=== PATIENT | female | born 1995 | race Caucasian/White ===

== ENCOUNTER → 2019-08-03 00:09 | Day surgery (SDC) | payer OTHER, SELFPAY ==
[2019-07-29 13:57] VITALS: BMI 44.2
[2019-08-03 07:30] VITALS: BP 119/54; PULSE 56; RESP 16; TEMP 37; O2SAT 100
[2019-08-03] MEDS: LACTATED RINGERS 1,000 ML 30 ML IV CONT (07:30)
[2019-08-03] MEDS: IBUPROFEN IV 800 MG/200 ML 800 MG/200 ML BAG 400 MG IVPB (07:35)
--- NOTE | 2019-08-03 07:45 | WPDANESEPPF ---
Anes - Initial Pre Proc Eval Procedure: Operation Date: 08/03/19 08:30 Proposed Procedures p Suction Dilatation and Curettage - Michelle Alicia MD Date/Time: 08/03/19 07:45 Surgeon: Michelle Alicia MD Pre Op Diagnosis: missed AB Patient Data Age: 23 Gender: F Height: 5 ft 3 in Weight: 113.4 kg Allergies Allergy/AdvReac Type Severity Reaction Status Date / Time No Known Allergies Allergy Verified 07/29/19 13:56 Home Medications Medication Instructions Recorded Confirmed Type No Home Medications 07/29/19 07/29/19 History Patient hx anesthesia problems: none Family hx anesthesia problems: none PMFSH Social History Social History Gender identity (if verbalized by the patient): Female Anes - Eval Final PreProcedure Day of Procedure 08/03/19 07:45 Patient weight: morbidly obese Heart: regular rate and rhythm Lungs: clear to auscultation Airway: Mallampati scale class II Neurological: alert and oriented Last oral intake: >/= 8 hours ASA classification: III Emergent: no Anesthetic plan: proceed Anesthesia type and monitoring: general GIVS and standard monitoring Informed Consent: The patient's anesthetic plan and its attendant risks and benefits were discussed with the patient/family/POA. Questions were solicited and answers provided to the satisfaction of the patient/family/POA.
--- NOTE | 2019-08-03 08:08 | PM.IMHP ---
H&P: HPI History of Present Illness Chief complaint: missed AB Narrative: Karen Wood is a 23 year old female with a missed . We have agreed to perform suction D&C. She understands that injuries can occur during surgery. She understands if these injuries can result in severe illness, more surgery, and hospitalization. She understands there is risk of hemorrhage and infection. I have described the procedure to the patient in detail. Review of Systems Constitutional: Constitutional: Reports no additional constitutional complaints, Denies fatigue, Denies headache(s), Denies lethargy and Denies weakness Eyes: Eyes: Reports no additional eye complaints, Denies blurry vision and Denies photophobia ENT: Reports as per HPI, Denies headache(s) and Denies neck pain Cardiovascular: Cardiovascular: Denies chest pain, Denies diaphoresis, Denies leg edema, Denies palpitations and Denies dyspnea Respiratory: Respiratory: Denies hemoptysis, Denies dyspnea and Denies wheezing Gastrointestinal: Gastrointestinal: Denies abdominal pain, Denies melena, Denies bloating, Denies hematochezia, Denies nausea and Denies vomiting Genitourinary: Genitourinary: Reports no additional female genitourinary complaints Musculoskeletal: Musculoskeletal: Denies joint swelling, Denies neck pain, Denies numbness and Denies stiffness Neurologic: Denies Abnormal speech present, Denies confusion, Denies headache(s), Denies numbness and Denies weakness Psychiatric: Psychiatric: Denies anxiety, Denies confusion, Denies depression, Denies homicidal ideation and Denies suicidal ideation Endocrine: Endocrine: Denies fatigue and Denies palpitations Allergic/Immunologic: Allergic/Immunologic: Denies wheezing [facility] Social History Social History Gender identity (if verbalized by the patient): Female Meds Home Medications and Allergies Home Medications Medication Instructions Recorded Confirmed Type No Home Medications 07/29/19 07/29/19 History Allergies Allergy/AdvReac Type Severity Reaction Status Date / Time No Known Allergies Allergy Verified 07/29/19 13:56 Vital Signs Vital Signs - 24 hr 08/03/19 07:30 Temperature 98.6 F Pulse Rate 56 L Respiratory Rate 16 Blood Pressure 119/54 L Pulse Oximetry 100 Exam Const: General: healthy appearing, comfortable and no acute distress; No confusion Orientation/consciousness: No confusion Eyes: Direct Ophthalmoscopy: No photophobia Resp: Auscultation: clear to auscultation bilaterally, no rales, no rhonchi and no wheezes Cardio: Rate: regular rate Heart sounds: no click, no murmurs and no rubs GI: Inspection: non-distended GI Palp: No abdominal tenderness Auscultation: normal bowel sounds Neuro: General: No confusion Speech: No Abnormal speech present Extrem: General: normal to inspection, no pedal edema and no calf tenderness Assessment and Plan Assessment and plan (1) Missed : Code(s): O02.1 - Missed Status: Acute Assessment and Plan: This patient is a 23-year-old female with a missed . We have agreed to perform suction D&C. She understands the risks, benefits, and alternatives. She has completed the informed consent process is ready to proceed.
[2019-08-03 08:42] VITALS: BP 121/63; PULSE 71; RESP 16; TEMP 36.4; O2SAT 95
--- NOTE | 2019-08-03 08:51 | P.OP_ITS ---
Procedure Note - Detailed Date of procedure: 08/03/19 Pre-op diagnosis: missed AB Post-op diagnosis: same Procedure performed: Suction D&C Description of procedure: The patient was taken the operating room. She has prepped and draped in dorsal lithotomy position after induction of mac anesthesia. A speculum was placed in the vagina. The cervix was grasped with a tenaculum. The cervix was injected at 3 and 9:00 a.m. with 1% lidocaine. The cervix was dilated up to 8 mm using Mallory dilators. An 8 curved plastic suction curette was then applied to the intrauterine cavity. All of the surfaces in the intrauterine cavity were curettage under VAC. A sharp medium-size curette was then used to curettage all the surfaces to confirmed the removal of all the products conception. When all surfaces for bleed to be clean the curette was r emoved. The suction curette was then reapplied to remove all the debris. The procedure was terminated. The tenaculum was removed. The speculum was removed. The patient tolerated the procedure well. She was taken recovery room in stable condition. Anesthesia: MAC Surgeon: Michelle Alicia MD Estimated blood loss (mL): 25 Drains: No Packing: No Pathology: yes Complications: No immediate complications Condition: stable Disposition: PACU Findings: Normal vulva vagina and cervix. The moderate amounts of products conception. 8 cm uterus.
[2019-08-03 08:55] VITALS: BP 121/68; PULSE 59; RESP 14; O2SAT 100
--- NOTE | 2019-08-03 09:00 | PM.OBPNVD ---
OB - PN: Subj Subjective Date/time seen: 08/03/19 09:00 Interval history: removal of balkri balloon OB - PN A/P Assessment and Plan (1) hemorrhage: Code(s): O72.1 - Other immediate hemorrhage Status: Acute Assessment and Plan: balkri removed without complication, balloon drained and withdrawn - no bleeding Time Spent With Patient Time: Total time spent is greater than 50% in coordination of care (as documented) at patient's floor/unit and/or counseling patient:
[2019-08-03 09:10] VITALS: BP 114/80; PULSE 61; RESP 16; O2SAT 98
[2019-08-03 09:13] VITALS: BP 129/72; PULSE 60; RESP 14
[2019-08-03 09:40] VITALS: BP 120/74; PULSE 58; RESP 14
== END | disposition home or self-care (01) ==
PROVIDERS: Visit Provider Obstetrics & Gynecology
PROC: (CPT 59820; principal; 2019-08-03 08:30)
DX: O02.1 Missed abortion (principal)
CPT/HCPCS: 59820; 36415; 86900; 86901; 88305; A9270; J1741; J2250; J2704; J3010; J7120

== ENCOUNTER 2020-08-20 19:56 | Observation (INO) | payer OTHER, SELFPAY ==
--- NOTE | ~2020-08-20 | US_ITS ---
EXAMINATION: US abdomen limited EXAM DATE: 08/21/2020 07:44 INDICATION: Right upper quadrant pain, elevated liver enzymes. TECHNIQUE: Multiple grayscale and Doppler images of the abdomen right upper quadrant were obtained (b y a technologist who performed the scan) and subsequently reviewed. There is no prior study for milady bahena. FINDINGS: The pancreatic head and body are normal in appearance. The pancreatic tail is not visualized. The l iver has normal echogenicity and contour. There are no focal liver lesions identified. There is no evidence of intrahepatic biliary duct dilation. Portal venous flow was seen in the hepatopedal, nor mal direction and has normal Doppler waveform. No right-sided hydronephrosis. Common bile duct measures 5 mm, which is normal. The gallbladder wall is normal in thickness, with ex pected amount of distention. No sonographic evidence of pericholecystic fluid. Multiple small galls tones which are likely poorly calcified. Technologist performing exam reports patient did not demons trate sonographic Bhakta's sign. Please note that this sign is less reliable in patients who have re ceived pain medication. IMPRESSION: Cholelithiasis. Reviewed, dictated and finalized at location A. IMPRESSION: Cholelithiasis.
[2020-08-20 19:15] VITALS: TEMP 36.4
[2020-08-20 19:31] VITALS: BP 123/62; PULSE 71
[2020-08-20 20:02] LABS: Add Urine Microscopic? YES; Appearance Urine Cloudy (Clear); Bilirubin Urine Negative (Negative); Blood Urine Negative (Negative); Color Urine Yellow (Yellow); Glucose Urine UA Negative (Negative); Ketones Urine Negative (Negative); Leukocyte Esterase Ur 1+ LEU/UL (NEGATIVE); Nitrate Urine Negative (Negative); Protein Urine Negative (Negative); Urobilinogen Urine Negative mg/dL (<2.0)
[2020-08-20 20:10] LABS: RBC Urine 0-2 /hpf (0-2)
[2020-08-20 20:11] LABS: Bacteria Urine 1+ /hpf; Squamous Epithelial Cell Urine Few /hpf (Few)
--- NOTE | 2020-08-20 20:39 | OBADM ---
This patient, Karen Wood, admitted to the OB room OB Post 117 for observation. Patient/family oriented to hospital policies and general routines including ID bracelet, bed and alarms, visiting hours, pain management, procedures, bathroom and other care routines, personal items, smoking policy, room service/diet, and visiting hours. Patient/Family are encouraged to report perceived risks to care and to ask questions if they do not understand what they are told or what they should do.
[2020-08-20 21:36] LABS: Basophils Percent Auto 0.2 % (0.2-1.2); Eosinophils Absolute Auto 0.1 K/mm3 (0-0.3); Eosinophils Percent Auto 0.7 % (0-4.4); Hematocrit 33.1 % (37.0-47.0); Hemoglobin 11.1 g/dL (12.0-15.0); Immature Granulocyte Absolute 0.06 K/mm3 (0.00-0.031); Immature Granulocyte Percent A 0.5 % (0-0.5); Lymphocytes Absolute Auto 0.99 K/mm3 (0.9-3.2); Mean Corpuscular HGB Conc 33.5 g/dl (32-36); Mean Corpuscular Hemoglobin 30.4 pg (26-34); Mean Corpuscular Volume 90.7 fl (80-100); Mean Platelet Volume 10.9 fl (7.4-10.4); Monocytes Absolute Auto 0.6 K/mm3 (0.1-0.6); Monocytes Percent Auto 4.5 % (2.6-8.5); Neutrophils Absolute Auto 10.6 K/mm3 (1.3-6.7); Neutrophils Percent Auto 86.1 % (45.5-73.1); Platelet Count Result 202 k/mm3 (150-375); Red Blood Count 3.65 M/mm3 (4.2-5.4); Red Cell Distribution Width 12.4 % (11.5-14.5); White Blood Count 12.3 K/mm3 (4.5-10.0)
[2020-08-20 21:46] LABS: Alanine Aminotransferase 49 U/L (4-35); Albumin Level 3.7 g/dL (3.5-5.1); Alkaline Phosphatase 131 U/L (38-126); Anion Gap 4 mmol/L (8-16); Aspartate Amino Transferase 74 U/L (14-36); Bilirubin,Total 1.7 mg/dL (0.2-1.3); Blood Urea Nitrogen 6 mg/dL (7-17); Calcium 9.2 mg/dL (8.4-10.2); Carbon Dioxide 27 mmol/L (22-30); Chloride 105 mmol/L (98-107); Estimated Glomerular Filt Rate > 60; Glucose 104 mg/dL (65-105); Potassium 3.7 mmol/L (3.4-5.0); Sodium 136 mmol/L (137-145); Uric Acid 4.5 mg/dL (2.5-7.5)
[2020-08-20 22:10] LABS: Amylase > 2400 U/L (30-110)
--- NOTE | 2020-08-20 22:15 | PC.NURSE ---
Lab results called to Jaylan Gurrola CNM. Orders received. Will admit pt and and get surgical consult and ultrasound in morning. Pt advised.
[2020-08-20] MEDS: LACTATED RINGERS 1,000 ML 125 ML IV CONT (23:09)
[2020-08-20 23:53] VITALS: BMI 48.8
[2020-08-20] MEDS: fentaNYL CITRATE INJ (*CRX) 100 MCG/2 ML VIAL 50 MCG IV PUSH (23:56)
[2020-08-21] VITALS (7 sets, daily range): BP systolic 104–121; BP diastolic 52–64; PULSE 55–76; RESP 20; TEMP 36.6–36.9
--- NOTE | 2020-08-21 06:34 | PC.NURSE ---
Hospitalist office notified of consult.
[2020-08-21] MEDS: LACTATED RINGERS 1,000 ML 125 ML IV CONT ×3 (07:01→23:49)
--- NOTE | 2020-08-21 08:00 | PC.NURSE ---
Dr. Arreguin in to see pt, no further orders at this time. Dr. Vasquez also called at this time. States an FLARE MAKER from his office will be in to see pt today, reviewed labs with Dr. Vasquez.
--- NOTE | 2020-08-21 08:05 | WPDOBADMIT ---
Obstetrics - Admit Note Admission Note: 714 24 y/o presented last night with c/o RUQ and right flank pain. Pain started Thursday evening after dinner. VSS. Initial labs did show elevated LFT. Amylase/Lipase pending. Plan was to keep overnight for a ultrasound & surgery consult in the AM. NPO after midnight. 0630 I was notified of significantly elevated amylase/lipase. H&P to follow when patient returns from ultrasound. record reviewed. No pertinent additions to the history and/or any subsequent changes in the physical findings that are not consistent with the expected course of the were found. Additions to the history and/or subsequent changes in the physical findings follow. None.
--- NOTE | 2020-08-21 08:14 | PM.IMCN ---
Assessment and Plan Assessment and plan (1) Pancreatitis: Qualifiers: Acute pancreatitis complication: unspecified Chronicity: acute Pancreatitis type: biliary Qualified Code(s): K85.10 - Biliary acute pancreatitis without necrosis or infection Code(s): K85.90 - Acute pancreatitis without necrosis or infection, unspecified Status: Acute Assessment and Plan: [place] [address] and Amylase >76021. LFTs elevated as well to suggest related to gallstone pancreatitis. Denies alcohol use. Will need to check Lipid levels but felt hyperTG less likely the cause. Symptoms are mild so hopefully she has passed the stone through. Will follow labs and clinical exam. Currently NPO. Recommend clear liquid diet if okay with General surgery. Repeat labs today. If symptoms and biochemical markers improve, will advance diet. If symptoms persist however patient may need an ERCP and I would recommend this being done at a facility with adult high school instructor. Follow-up on abdominal ultrasound. Abd US showing cholelithiasis. CBD normal at 5mm. No evidence of acute cholecystitis. WBC normal now. Lipase better at 3839. TB normal now but AST/ALT about the same. Possibly passed stone. (2) Elevated LFTs: Code(s): R79.89 - Other specified abnormal findings of blood chemistry Status: Acute Assessment and Plan: Most likely related to above. Follow-up on abdominal ultrasound. Repeat LFTs today. (3) Intrauterine : Code(s): Z34.90 - Encounter for supervision of normal , unspecified, unspecified trimester Status: Acute Assessment and Plan: Patient is 29 weeks gestational age. Per primary team. (4) Abnormal urinalysis: Code(s): R82.90 - Unspecified abnormal findings in urine Status: Acute Assessment and Plan: UA noted. UCx ordered. Not on abx. Following. (5) DVT prophylaxis: Code(s): Z29.9 - Encounter for prophylactic measures, unspecified Status: Acute Assessment and Plan: SCDs HPI Data of Consult Consult date: 08/22/20 Requesting Physician: Michelle Alicia MD Primary Care Provider: PROTECTIVE SIGNAL SUPERINTENDENT PHYSICIAN Consult Narrative Narrative: Karen Wood is a 24 year old healthy, female who is currently 29wks GA who presents with complaints of RUQ abdominal pain that radiates to the flank/back. In the evening of 08/19/20, she developed abdominal pain. She has not been having intermittent pain prior to this. Pain occurred after eating a pasta meal. She states the abdominal pain is squeezing pain that waxes/wanes in severity but remains consistent. Belching seem to improve the symptoms. She to Tylenol without benefit. She states it is worse with deep breathing. No pleuritc chest pain. No fever or chills. No hx of GB or pancreatic problems. Sister has had a CCY. No diarrhea but having constipation symptoms due to her . SHe did have a BM yesterday but no benefit to the pain. On 08/20, she developed nausea with one episode of bilious emesis that was brown in color. She then was 'spitting up blood' but she states this is typical for her. SHe has had episodes on n/v during her prior pregnacnies. No vaginal bleeding but does have discharge. No dysuria, hematuria or low back pain. Her urine is dark in color. No hx of seizures or migraines but did have an episode at 12wk GA with numbness in her hands and face. She was seen by Maternal Medicine who recommended MRI but felt this should wait until she was further along. No set plan for MRI brain at this time. Symptoms resolved quickly and have not returned. Weight has been appropriate. No hx of gestational DM and was recently tested during this and was negative. Here, patient was hemodynamically stable. Liver enzymes were. Lipase was 39,000. UA suspicious for UTI. Urine culture pending. She was started on fluids. Ultrasound
--- NOTE | 2020-08-21 08:20 | PM.IMHP ---
H&P: HPI History of Present Illness Date/Time: 08/21/20 08:20 RUQ & Right flank pain that started after dinner on Thursday. Chief Complaint: RUQ and Right flank pain Review of Systems Review of Systems: All systems reviewed & are unremarkable except as noted in HPI and below Constitutional: Constitutional: Reports no additional constitutional complaints Gastrointestinal: Gastrointestinal: Reports no additional gastrointestinal complaints Genitourinary: Genitourinary: Reports no additional female genitourinary complaints Musculoskeletal: Musculoskeletal: Reports no additional musculoskeletal complaints Integumentary/Breasts: Skin/Breast: Reports system reviewed and no additional complaints, except as docu [facility] Social History Social History Gender identity (if verbalized by the patient): Female Meds Home Medications and Allergies Home Medications Medication Instructions Recorded Confirmed Type No Home Medications 07/29/19 07/29/19 History Allergies Allergy/AdvReac Type Severity Reaction Status Date / Time No Known Allergies Allergy Verified 07/29/19 13:56 Vital Signs Vital Signs - 24 hr 08/20/20 19:15 08/20/20 19:31 08/21/20 00:01 Temperature 97.5 F L 97.9 F Pulse Rate 71 69 Blood Pressure 123/62 115/61 08/21/20 05:39 08/21/20 05:40 Temperature 98.5 F Pulse Rate 68 Blood Pressure 105/52 L Exam Const: General: comfortable and no acute distress Resp: Effort & Inspection: normal respiratory effort Cardio: Rate: regular rate Rhythm: regular rhythm GI: GI Palp: Yes Soft to palpation (Gravid) Skin: General skin exam: normal color Neuro: General: gait normal Speech: normal speech Extrem: General: normal to inspection Psych: Mental Status: mental status grossly normal H&P: Results Labs Labs: Short CBC 08/20/20 Range/Units 21:26 WBC 12.3 H (4.5-10.0) K/mm3 Hgb 11.1 L (12.0-15.0) g/dL Hct 33.1 L (37.0-47.0) % Plt Count 202 (150-375) k/mm3 [facility] 08/20/20 21:26 Sodium 136 L Potassium 3.7 Chloride 105 Carbon Dioxide 27 BUN 6 L Creatinine 0.60 L Glucose 104 Calcium 9.2 Liver Function 08/20/20 Range/Units 21:26 Total Bilirubin 1.7 H (0.2-1.3) mg/dL AST 74 H (14-36) U/L ALT 49 H (4-35) U/L Alkaline Phosphatase 131 H (38-126) U/L Albumin 3.7 (3.5-5.1) g/dL Urine 08/20/20 Range/Units 19:43 Urine Color Yellow (Yellow) Urine Appearance Cloudy H (Clear) Urine pH 6.0 (5.0-9.0) Ur Specific [place] 1.010 (1.001-1.035) Urine Protein Negative (Negative) mg/dL Urine Glucose (UA) Negative (Negative) mg/dL Assessment and Plan Additional Plan Continue npo status. Await medical and surgical consults.
[2020-08-21 10:27] LABS: Basophils Percent Auto 0.3 % (0.2-1.2); Eosinophils Absolute Auto 0.1 K/mm3 (0-0.3); Eosinophils Percent Auto 1.3 % (0-4.4); Hematocrit 30.2 % (37.0-47.0); Hemoglobin 10.1 g/dL (12.0-15.0); Immature Granulocyte Absolute 0.04 K/mm3 (0.00-0.031); Immature Granulocyte Percent A 0.5 % (0-0.5); Lymphocytes Absolute Auto 1.12 K/mm3 (0.9-3.2); Lymphocytes Percent Auto 14.3 % (18.3-44.2); Mean Corpuscular HGB Conc 33.4 g/dl (32-36); Mean Corpuscular Hemoglobin 30.5 pg (26-34); Mean Corpuscular Volume 91.2 fl (80-100); Mean Platelet Volume 10.7 fl (7.4-10.4); Monocytes Absolute Auto 0.5 K/mm3 (0.1-0.6); Monocytes Percent Auto 6.3 % (2.6-8.5); Neutrophils Absolute Auto 6.1 K/mm3 (1.3-6.7); Neutrophils Percent Auto 77.3 % (45.5-73.1); Platelet Count Result 184 k/mm3 (150-375); Red Blood Count 3.31 M/mm3 (4.2-5.4); Red Cell Distribution Width 12.5 % (11.5-14.5); White Blood Count 7.8 K/mm3 (4.5-10.0)
[2020-08-21 10:39] LABS: Alanine Aminotransferase 64 U/L (4-35); Albumin Level 3.4 g/dL (3.5-5.1); Alkaline Phosphatase 131 U/L (38-126); Anion Gap 2 mmol/L (8-16); Aspartate Amino Transferase 92 U/L (14-36); Bilirubin,Total 0.9 mg/dL (0.2-1.3); Blood Urea Nitrogen 6 mg/dL (7-17); Calcium 8.6 mg/dL (8.4-10.2); Carbon Dioxide 28 mmol/L (22-30); Chloride 107 mmol/L (98-107); Cholesterol 168 mg/dL (0-200); Estimated CRCL calculation 190 ml/min; Estimated Glomerular Filt Rate > 60; Glucose 86 mg/dL (65-105); HDL Direct 59 mg/dL; Potassium 3.6 mmol/L (3.4-5.0); Sodium 137 mmol/L (137-145); Triglycerides 109 mg/dL (<150)
[2020-08-21 10:50] LABS: LDL Cholesterol Direct 70 mg/dL
[2020-08-21 10:52] LABS: Lipase 3839 U/L (23-300)
--- NOTE | 2020-08-21 12:13 | PM.CNGS ---
Assessment and Plan Assessment and plan (1) Pancreatitis: Qualifiers: Chronicity: acute Pancreatitis type: biliary Acute pancreatitis complication: unspecified Qualified Code(s): K85.10 - Biliary acute pancreatitis without necrosis or infection Code(s): K85.90 - Acute pancreatitis without necrosis or infection, unspecified Status: Acute Assessment and Plan: Acute pancreatitis, most likely biliary pancreatitis. No alcohol use. Triglycerides normal today. Ultrasound showed evidence of cholelithiasis, but no other abnormalities of the gallbladder suggesting acute cholecystitis. Would continue with IV fluids and analgesics to treat the pancreatitis. We will allow her to have clear liquids today. Lipase is trending down and she is clinically improving. Her elevated LFTs are likely due to a gallstone/s that slipped out of the gallbladder and into the common bile duct. LFTs are trending down this morning. Would continue to trend LFTs to see if it looks like the stone may have passed spontaneously. If her LFTs start to rise, then we may need to consider further evaluation of the common bile duct for choledocholithiasis and get GI involved. I discussed with the patient that she will eventually need a cholecystectomy to avoid further complications of her cholelithiasis, but she would be a high risk surgical candidate at this time due to being in the 3rd trimester of . The goal would be to have the pancreatitis resolved and eventually send her home on a low fat diet to follow until she is able to have the cholecystectomy. We would have her follow-up with Dr. Vasquez after delivery to schedule her outpatient laparoscopic cholecystectomy. Will continue to monitor the patient with serial abdominal exams and labs. Thank you for allowing us to see the patient in consultation and we will continue to follow along with you. (2) Cholelithiasis: Qualifiers: Cholelithiasis location: gallbladder and bile duct Cholecystitis presence: without cholecystitis Code(s): K80.20 - Calculus of gallbladder without cholecystitis without obstruction Status: Acute Assessment and Plan: Will eventually need a cholecystectomy, but will try to avoid this until at least 4 weeks post- if possible. Discussed this with the patient and the possibility of recurrent pancreatitis or other complications with the cholelithiasis prior to cholecystectomy. She verbalized understanding. She will need to follow a low fat diet and I will give her an educational sheet from our office regarding the surgery and diet instructions. (3) Elevated LFTs: Code(s): R79.89 - Other specified abnormal findings of blood chemistry Status: Acute Assessment and Plan: Continue to trend labs, repeat tomorrow. See plan above. We will discuss the risk of having an MRCP for this patient with the radiologist. (4) Obesity, morbid, BMI 40.0-49.9: Code(s): E66.01 - Morbid (severe) obesity due to excess calories Status: Acute Assessment and Plan: Encouraged low-fat diet after discharge and attempted weight loss prior to surgery. Additional Plan I have discussed the patient's case and plan of care with Dr. Vasquez. History of Present Illness Consult details Consult date: 08/21/20 Reason for consult: other (Biliary pancreatitis, cholelithiasis) Requesting physician: Pualina Gurrola CNM Narrative: This is a 24-year-old obese female, who is 29 weeks gestation, who developed right flank pain radiating to her right upper abdomen on Thursday night. She reports eating pasta for dinner prior to the onset of her symptoms. She developed associated nausea, but no vomiting. She was evaluated at [facility] and labs revealed a lipase of 39,421, amylase greater than 2400[place] [address], total bilirubin 1.7, AST 74, ALT 49, and alk-phos 131. Abdominal ultrasound shows cholelithiasis with a common bile duct
[2020-08-22 04:53] VITALS: BP 118/62; PULSE 25; PULSE 37; PULSE 51; PULSE 61; O2SAT 93; O2SAT 94; O2SAT 96
[2020-08-22 04:54] VITALS: BP 118/62; PULSE 62; RESP 16; TEMP 36.6; O2SAT 99
[2020-08-22 05:09] LABS: Hemoglobin 9.9 g/dL (12.0-15.0); Mean Corpuscular Hemoglobin 30.1 pg (26-34); Mean Corpuscular Volume 91.2 fl (80-100); Mean Platelet Volume 10.6 fl (7.4-10.4); Platelet Count Result 160 k/mm3 (150-375); Red Blood Count 3.29 M/mm3 (4.2-5.4); Red Cell Distribution Width 12.5 % (11.5-14.5); White Blood Count 7.8 K/mm3 (4.5-10.0)
[2020-08-22 05:35] LABS: Alanine Aminotransferase 68 U/L (4-35); Albumin Level 3.2 g/dL (3.5-5.1); Alkaline Phosphatase 127 U/L (38-126); Anion Gap 6 mmol/L (8-16); Aspartate Amino Transferase 75 U/L (14-36); Bilirubin,Total 0.5 mg/dL (0.2-1.3); Blood Urea Nitrogen 3 mg/dL (7-17); Carbon Dioxide 23 mmol/L (22-30); Chloride 107 mmol/L (98-107); Estimated CRCL calculation 190 ml/min; Estimated Glomerular Filt Rate > 60; Glucose 81 mg/dL (65-105); Lipase 323 U/L (23-300); Potassium 3.4 mmol/L (3.4-5.0); Sodium 136 mmol/L (137-145)
--- NOTE | 2020-08-22 07:20 | PM.OBPNVD ---
OB - PN: Subj Subjective Date/time seen: 08/22/20 07:20 Patient comments: no complaints and pain well controlled Narrative: Pain has resolved. LFTs stable and mildly improved, amylase markedly improved, WBC improved. Good FM. No contractions. OB - PN: Obj Data Labs CBC & Chem 7: 08/22/20 05:00 08/22/20 05:00 Labs: Laboratory Results - last 24 hr 08/21/20 08/21/20 08/22/20 10:21 10:21 05:00 WBC 7.8 RBC 3.31 L Hgb 10.1 L Hct 30.2 L MCV 91.2 MCH 30.5 MCHC 33.4 RDW 12.5 Plt Count 184 MPV 10.7 H Immature Gran % (Auto) 0.5 Neut % (Auto) 77.3 H Lymph % (Auto) 14.3 L Mccormick % (Auto) 6.3 Eos % (Auto) 1.3 Baso % (Auto) 0.3 Lymph # (Auto) 1.12 Mccormick # (Auto) 0.5 Eos # (Auto) 0.1 Baso # (Auto) 0.0 Abs Immat Gran (auto) 0.04 H Absolute Neuts (auto) 6.1 Absolute Nucleated RBC 0.0 Nucleated RBC % 0.0 Sodium 137 136 L Potassium 3.6 3.4 Chloride 107 107 Carbon Dioxide 28 23 Anion Gap 2 L 6 L BUN 6 L 3 L Creatinine 0.50 L 0.50 L Estim Creat Clear Calc 190 190 Estimated GFR > 60 > 60 Glucose 86 81 Calcium 8.6 9.0 Total Bilirubin 0.9 0.5 AST 92 H 75 H ALT 64 H 68 H Alkaline Phosphatase 131 H 127 H Total Protein 7.0 7.0 Albumin 3.4 L 3.2 L Triglycerides 109 Cholesterol 168 LDL Cholesterol Direct 70 HDL Direct 59 Lipase 3839 H 323 H 08/22/20 05:00 WBC 7.8 RBC 3.29 L Hgb 9.9 L Hct 30.0 L MCV 91.2 MCH 30.1 MCHC 33.0 RDW 12.5 Plt Count 160 MPV 10.6 H Immature Gran % (Auto) Neut % (Auto) Lymph % (Auto) Mccormick % (Auto) Eos % (Auto) Baso % (Auto) Lymph # (Auto) Mccormick # (Auto) Eos # (Auto) Baso # (Auto) Abs Immat Gran (auto) Absolute Neuts (auto) Absolute Nucleated RBC Nucleated RBC % Sodium Potassium Chloride Carbon Dioxide Anion Gap BUN Creatinine Estim Creat Clear Calc Estimated GFR Glucose Calcium Total Bilirubin AST ALT Alkaline Phosphatase Total Protein Albumin Triglycerides Cholesterol LDL Cholesterol Direct HDL Direct Lipase Imaging Radiologist's impression: Impressions Abdomen Ultrasound 08/21/20 07:55 IMPRESSION: Cholelithiasis. OB - PN A/P Plan Comments: 29 weeks with cholelithiasis resulting in pancreatitis. Appears stone must have passed as pain resolved and labs improving. Full liquids per surgery, may then have gen diet if tolerates. Home today if tolerates diet. Qi in future, hopefully after delivery. Discussed POC with pt and RN. Reassuring status throughout. Time Spent With Patient Time: Total time spent is greater than 50% in coordination of care (as documented) at patient's floor/unit and/or counseling patient: Time with patient: 15 - 25 minutes Exam Narrative: Exam Narrative: NAD, comfortable abdo: soft, nontender, gravid
[2020-08-22 07:22] VITALS: BP 136/68; PULSE 62
--- NOTE | 2020-08-22 07:26 | PM.OBDSVD ---
DS: Admitting Diagnosis Admitting Diagnosis Admitting Diagnosis: RUQ pain DS: Discharge Diagnosis Discharge Diagnosis (1) Cholelithiasis: Qualifiers: Cholelithiasis location: gallbladder and bile duct Cholecystitis presence: without cholecystitis Code(s): K80.20 - Calculus of gallbladder without cholecystitis without obstruction Status: Acute (2) Pancreatitis: Qualifiers: Chronicity: acute Pancreatitis type: biliary Acute pancreatitis complication: unspecified Qualified Code(s): K85.10 - Biliary acute pancreatitis without necrosis or infection Code(s): K85.90 - Acute pancreatitis without necrosis or infection, unspecified Status: Acute (3) Elevated LFTs: Code(s): R79.89 - Other specified abnormal findings of blood chemistry Status: Acute (4) Intrauterine : Code(s): Z34.90 - Encounter for supervision of normal , unspecified, unspecified trimester Status: Acute OB - DS: Summary Hospital Course Hospital Course: Pt was admitted for RUQ pain. Found to have very elevated amylase/lipase and moderately elevated LFTs. US showed cholelithiasis. Surgery and medicine consulted. Stone passed spontaneously and pain resolved as enzymes improved. OB Procedures : None OB Procedures Intrapartum: Other OB Procedures: : None Time Spent with Patient Time attestation: Total time spent providing and/or coordinating discharge services: Exam Const: General: healthy appearing and comfortable Nutritional Appearance: obese Resp: Effort & Inspection: normal respiratory effort GI: Inspection: normal to inspection and obesity Other: abdomen nontender, gravid, soft Skin: General skin exam: normal color DS: Data Data Completed and Pending Labs on day of discharge: Labs from last 24 hours 08/22/20 08/22/20 08/21/20 05:00 05:00 10:21 WBC 7.8 RBC 3.29 L Hgb 9.9 L Hct 30.0 L MCV 91.2 MCH 30.1 MCHC 33.0 RDW 12.5 Plt Count 160 MPV 10.6 H Immature Gran % (Auto) Neut % (Auto) Lymph % (Auto) [place] % (Auto) Eos % (Auto) Baso % (Auto) Lymph # (Auto) [place] # (Auto) Eos # (Auto) Baso # (Auto) Abs Immat Gran (auto) Absolute Neuts (auto) Absolute Nucleated RBC Nucleated RBC % Sodium 136 L 137 Potassium 3.4 3.6 Chloride 107 107 Carbon Dioxide 23 28 Anion Gap 6 L 2 L BUN 3 L 6 L Creatinine 0.50 L 0.50 L Estim Creat Clear Calc 190 190 Estimated GFR > 60 > 60 Glucose 81 86 Calcium 9.0 8.6 Total Bilirubin 0.5 0.9 AST 75 H 92 H ALT 68 H 64 H Alkaline Phosphatase 127 H 131 H Total Protein 7.0 7.0 Albumin 3.2 L 3.4 L Triglycerides 109 Cholesterol 168 LDL Cholesterol Direct 70 HDL Direct 59 Lipase 323 H 3839 H 08/21/20 10:21 WBC 7.8 RBC 3.31 L Hgb 10.1 L Hct 30.2 L MCV 91.2 MCH 30.5 MCHC 33.4 RDW 12.5 Plt Count 184 MPV 10.7 H Immature Gran % (Auto) 0.5 Neut % (Auto) 77.3 H Lymph % (Auto) 14.3 L [place] % (Auto) 6.3 Eos % (Auto) 1.3 Baso % (Auto) 0.3 Lymph # (Auto) 1.12 [place] # (Auto) 0.5 Eos # (Auto) 0.1 Baso # (Auto) 0.0 Abs Immat Gran (auto) 0.04 H Absolute Neuts (auto) 6.1 Absolute Nucleated RBC 0.0 Nucleated RBC % 0.0 Sodium Potassium Chloride Carbon Dioxide Anion Gap BUN Creatinine Estim Creat Clear Calc Estimated GFR Glucose Calcium Total Bilirubin AST ALT Alkaline Phosphatase Total Protein Albumin Triglycerides Cholesterol LDL Cholesterol Direct HDL Direct Lipase Discharge Plan Discharge Attending physician on discharge: Amanda Sharp Consulting providers: Lemuel Arreguin ; Jeferson Vasquez Discharging Clinician: Amanda Sharp Anticipated Discharge Date/Time: 08/22/20 14:00 Patient Disposition: Home, Self-Care Activity: as tolerated Diet: low fat Discharge Instructions:
[2020-08-22 07:31] VITALS: BP 101/55; PULSE 57
[2020-08-22 08:03] VITALS: BP 101/55; PULSE 73
--- NOTE | 2020-08-22 08:45 | PM.IMPN ---
Progress Note: A&P Assessment and Plan (1) Pancreatitis: Qualifiers: Chronicity: acute Pancreatitis type: biliary Acute pancreatitis complication: unspecified Qualified Code(s): K85.10 - Biliary acute pancreatitis without necrosis or infection Code(s): K85.90 - Acute pancreatitis without necrosis or infection, unspecified Status: Acute Assessment and Plan: [place] [address] and Amylase >01015. LFTs elevated as well to suggest related to gallstone pancreatitis. Denies alcohol use. Lipid levels normal. Lipase down to 323 this morning to suggest that she has passed the stone through. Labs and clinical exam also consistent with this. Currently NPO but agree with full liguid diet and would advance to lowfat diet as she tolerates. Okay for discharge from a medical standpoint if she tolerates her diet well. Will continue to follow. (2) Elevated LFTs: Code(s): R79.89 - Other specified abnormal findings of blood chemistry Status: Acute Assessment and Plan: Related to above. AST trending down now. ALT lags behind. (3) Intrauterine : Code(s): Z34.90 - Encounter for supervision of normal , unspecified, unspecified trimester Status: Acute Assessment and Plan: Patient is 29 weeks gestational age. Per primary team. (4) Abnormal urinalysis: Code(s): R82.90 - Unspecified abnormal findings in urine Status: Acute Assessment and Plan: UA noted. UCx negative (5) DVT prophylaxis: Code(s): Z29.9 - Encounter for prophylactic measures, unspecified Status: Acute Assessment and Plan: SCDs Subjective Date/time seen: 08/22/20 08:45 Interval history: 24 year old healthy, female who is currently 29wks GA who presents with complaints of RUQ abdominal pain that radiates to the flank/back found to have pancreatitis. She feels much better. No further abd pain. No n/v. maloney tones normal with routine monitoring. Exam Narrative: Exam Narrative: AF 98.5 104/58 55 14 98% ra Gen - NARD Chest - lungs are clear to auscultation bilaterally. CV - heart was regular rate and rhythm. S1-S2. Abd - abdomen was soft. NT/ND, +BS Ext - no edema Psych - normal mood and affect. Patient is pleasant and cooperative. Skin - warm and dry. No rashes noted. Objective Data Vital Signs Vital Signs: Vital Signs - 24 hr 08/21/20 16:07 08/21/20 22:13 08/21/20 22:15 Temperature 98.3 F 97.9 F Pulse Rate 76 68 Respiratory Rate 20 Blood Pressure 107/64 121/54 L Pulse Oximetry 08/22/20 04:53 08/22/20 04:54 08/22/20 07:22 Temperature 97.9 F Pulse Rate 61 62 62 Respiratory Rate 16 Blood Pressure 118/62 118/62 136/68 Pulse Oximetry 94 99 08/22/20 07:31 Temperature Pulse Rate 57 L Respiratory Rate Blood Pressure 101/55 L Pulse Oximetry Intake/Output Intake/Output: Intake & Output 08/19/20 08/20/20 08/21/20 08/22/20 23:59 23:59 23:59 23:59 Intake Total 3800 Output Total 600 Balance 3200 Meds/Results Medications: Active Medications Generic Name Dose Route Start Last Admin Trade Name Freq PRN Reason Stop Dose Admin Fentanyl Citrate 50 mcg 08/20/20 23:09 08/20/20 23:56 Fentanyl Citrate Inj (*Crx) 100 Mcg/2 Ml Vial IV PUSH 50 mcg Q4H PRN Administration Pain Rated 4-6 Lactated Ringer's 1,000 mls @ 125 mls/hr 08/20/20 23:10 08/21/20 23:49 Lr - Lactated Ringers Iv IV CONT 125 mls/hr .Q8H ROSS Administration Ondansetron HCl 4 mg 08/20/20 23:10 Ondansetron Inj 4 Mg/2 Ml Vial IV PUSH Q6H PRN Nausea And Vomiting Radiology Results: ITS Impressions Abdomen Ultrasound 08/21/20 07:55 IMPRESSION: Cholelithiasis. Labs Labs: Laboratory Results - last 24 hr 08/21/20 08/21/20 08/22/20 10:21 10:21 05:00 WBC 7.8 RBC 3.31 L Hgb 10.1 L Hct 30.2 L MCV 91.2
--- NOTE | 2020-08-22 08:50 | PC.NURSE ---
0715--Dr. Vasquez inquired per phone-report given, orders taken. Will start breakfast with full liquid and advance as tolerated. Pt will walk in halls.
--- NOTE | 2020-08-22 08:51 | PC.NURSE ---
0803--Dr. Arreguin at bedside. Discussed plan of care with patient and performed physical assessment. Pt encouraged to walk in unit and start diet with low fat diet.
--- NOTE | 2020-08-22 09:15 | PC.NURSE ---
0725--Dr. Sharp at bedside. Plan of care discussed.
--- NOTE | 2020-08-22 09:42 | PC.NURSE ---
0935--Pt sitting up in chair and reports she finished breakfast and remains pain-free.
--- NOTE | 2020-08-22 11:09 | PC.NURSE ---
1105---Pt ambulating in [place].
--- NOTE | 2020-08-22 12:46 | PC.NURSE ---
1235--PA at pt bedside. DC orders given and plan of care discussed with patient.
--- NOTE | 2020-08-22 13:14 | PC.NURSE ---
1312--Reported pt progress to Dr. Arreguin. DC orders given.
--- NOTE | 2020-08-22 13:28 | PM.PNGS ---
Progress Note: A&P Assessment and Plan (1) Pancreatitis: Qualifiers: Chronicity: acute Pancreatitis type: biliary Acute pancreatitis complication: unspecified Qualified Code(s): K85.10 - Biliary acute pancreatitis without necrosis or infection Code(s): K85.90 - Acute pancreatitis without necrosis or infection, unspecified Status: Acute Assessment and Plan: Lipase down to 300 today. Patient clinically improved. Tolerating a low fat diet. Okay from a surgical standpoint to discharge the patient when okay with other services. (2) Cholelithiasis: Qualifiers: Cholelithiasis location: gallbladder and bile duct Cholecystitis presence: without cholecystitis Code(s): K80.20 - Calculus of gallbladder without cholecystitis without obstruction Status: Acute Assessment and Plan: Will eventually need a cholecystectomy, but will try to avoid this until at least 4 weeks post- if possible. Discussed this with the patient and the possibility of recurrent pancreatitis or other complications with the cholelithiasis prior to cholecystectomy. She will need to follow a low fat diet and I will give her an educational sheet from our office regarding the surgery and diet instructions. Follow-up in our office after delivery to schedule outpatient cholecystectomy. If symptoms return prior to delivery, go to the facility where your high risk specialist is located in case there is a need for any intervention. Also, they have made a disk for the patient of what she had done at this facility to take to her high risk specialist at her next appointment for them to be aware. (3) Elevated LFTs: Code(s): R79.89 - Other specified abnormal findings of blood chemistry Status: Acute Assessment and Plan: Trending towards normal. See plan above. (4) Obesity, morbid, BMI 40.0-49.9: Code(s): E66.01 - Morbid (severe) obesity due to excess calories Status: Acute Assessment and Plan: Encouraged low-fat diet after discharge and attempted weight loss prior to surgery. Additional Plan I have discussed the plan of care with Dr. Vasquez. Subjective Subjective Date/Time Seen: 08/22/20 12:01 Patient reports: no new complaints, feels better and tolerating a regular diet Interval history: Patient seen today without any complaints. Denies any abdominal pain, nausea, or vomiting. She is tolerating a low fat diet. Review of Systems Review of Systems: All systems reviewed & are unremarkable except as noted in HPI and below Exam Const: General: no acute distress, alert and awake Nutritional Appearance: obese GI: Inspection: obesity and other (Gravid uterus) GI Palp: Yes Soft to palpation, No Tenderness to palpation present (GI), No Guarding due to palpation present (GI) and No Rebound tenderness present Auscultation: normal bowel sounds Neuro: General: moves all extremities and no focal motor deficits Psych: Mental Status: mental status grossly normal Insight: Good insight present (Psych) Judgement: Good judgement present (Psych) Objective Data Vital Signs Vital Signs: Vital Signs - 24 hr 08/21/20 16:07 08/21/20 22:13 08/21/20 22:15 Temperature 98.3 F 97.9 F Pulse Rate 76 68 Respiratory Rate 20 Blood Pressure 107/64 121/54 L Blood Pressure [Right Arm] Pulse Oximetry 08/22/20 04:53 08/22/20 04:54 08/22/20 07:22 Temperature 97.9 F Pulse Rate 61 62 62 Respiratory Rate 16 Blood Pressure 118/62 118/62 136/68 Blood Pressure [Right Arm] Pulse Oximetry 94 99 08/22/20 07:31 08/22/20 08:03 Temperature Pulse Rate 57 L 73 Respiratory Rate Blood Pressure 101/55 L Blood Pressure [Right Arm] 101/55 L Pulse Oximetry Intake/Output Intake/Output: Intake & Output 08/19/20 08/20/20 08/21/20 08/22/20 23:59 23:59 23:59 23:59 Intake Total 3800 Output Total 600 Balance 3200 Meds/Results Radiology Resu
== END 2020-08-22 13:20 | disposition home or self-care (01) ==
PROVIDERS: Advanced Practice Midwife; Internal Medicine; Nurse Practitioner Family; Admitting Provider Obstetrics & Gynecology; Visit Provider Obstetrics & Gynecology
DX: O99.613 Diseases of the digestive system complicating pregnancy, third trimester (principal); K80.20 Calculus of gallbladder without cholecystitis without obstruction; K85.10 Biliary acute pancreatitis without necrosis or infection; E66.01 Morbid (severe) obesity due to excess calories; R79.89 Other specified abnormal findings of blood chemistry; Z3A.29 29 weeks gestation of pregnancy
CPT/HCPCS: 36415; 59025; 76705; 80053; 80061; 81001; 82150; 83690; 84550; 85025; 85027; 87086; 96360; 96361; 96374; G0378; G0379; J3010; J7120

== ENCOUNTER 2020-09-17 10:31 | Outpatient (CLI) | payer OTHER, SELFPAY ==
--- NOTE | ~2020-09-17 | US_ITS ---
US OB BPP wo non-stress DATE: 09/17/2020 12:14 INDICATION: Obesity. Biophysical profile 10/16 in office TECHNIQUE: Real-time imaging and Doppler analysis COMPARISON: None FINDINGS: Live single intrauterine gestation, fetus in longitudinal lie, vertex presentation. h eart rate of 150 bpm. Anterior placenta. Subjectively normal amount of amniotic fluid. BIOPHYSICAL PROFILE reported by fishing tool technician oil well: breathin out of 2 movement: 2 out of 2 tone: 2 out of 2 Amniotic fluid pocket: 2 out of 2 Total score: 8 out of 8 IMPRESSION: Normal biophysical profile score of 8 out of 8 Reviewed, dictated and finalized at [facility]. Reviewed, dictated and finalized at [facility].
[2020-09-17 12:53] VITALS: BP 118/61
== END 2020-09-17 10:32 | disposition home or self-care (01) ==
LOC: ANHOBOP 10:38
PROVIDERS: Visit Provider Obstetrics & Gynecology
DX: E66.9 Obesity, unspecified (principal)
CPT/HCPCS: 59025; 76819

== ENCOUNTER 2020-10-19 00:04 | Inpatient (IN) | payer OTHER, SELFPAY ==
[2020-10-19] VITALS (156 sets, daily range): BP systolic 87–141; BP diastolic 36–103; PULSE 62–189; RESP 16–20; TEMP 36.5–36.9; O2SAT 85–100; BMI 51.2
--- NOTE | 2020-10-19 00:30 | LDADM ---
This patient, Karen Wood, was admitted to Labor/Delivery/Recovery 107 on 10/19/20 at 00:04. Plans for labor, pain management and were discussed with patient. Patient/family oriented to hospital policies and general routines including ID bracelet, bed and alarms, visiting hours, pain management, procedures, bathroom and other care routines, personal items, smoking policy, room service/diet and guest tray routines, infant security routines, and visiting hours. Patient/Family are encouraged to report perceived risks to care and to ask questions if they do not understand what they are told or what they should do. See OBIX for further documentation.
[2020-10-19 00:47] LABS: Basophils Percent Auto 0.3 % (0.2-1.2); Eosinophils Absolute Auto 0.1 K/mm3 (0-0.3); Eosinophils Percent Auto 0.7 % (0-4.4); Hematocrit 33.3 % (37.0-47.0); Hemoglobin 11.2 g/dL (12.0-15.0); Immature Granulocyte Absolute 0.07 K/mm3 (0.00-0.031); Immature Granulocyte Percent A 0.5 % (0-0.5); Lymphocytes Absolute Auto 1.35 K/mm3 (0.9-3.2); Lymphocytes Percent Auto 9.4 % (18.3-44.2); Mean Corpuscular HGB Conc 33.6 g/dl (32-36); Mean Corpuscular Hemoglobin 29.8 pg (26-34); Mean Corpuscular Volume 88.6 fl (80-100); Monocytes Absolute Auto 0.8 K/mm3 (0.1-0.6); Monocytes Percent Auto 5.9 % (2.6-8.5); Neutrophils Percent Auto 83.2 % (45.5-73.1); Platelet Count Result 170 k/mm3 (150-375); Red Blood Count 3.76 M/mm3 (4.2-5.4); Red Cell Distribution Width 13.4 % (11.5-14.5); White Blood Count 14.4 K/mm3 (4.5-10.0)
[2020-10-19] MEDS: LACTATED RINGERS 1,000 ML 125 ML IV CONT ×3 (00:52→07:57)
[2020-10-19] MEDS: OXYTOCIN 30 UNITS/NS 500 ML 30 UNITS/500 ML BAG IV CONT (00:53)
[2020-10-19 00:56] LABS: Alanine Aminotransferase 18 U/L (4-35); Albumin Level 3.7 g/dL (3.5-5.1); Alkaline Phosphatase 143 U/L (38-126); Anion Gap 10 mmol/L (8-16); Aspartate Amino Transferase 33 U/L (14-36); Bilirubin,Total 0.4 mg/dL (0.2-1.3); Blood Urea Nitrogen 7 mg/dL (7-17); Carbon Dioxide 20 mmol/L (22-30); Chloride 106 mmol/L (98-107); Estimated CRCL calculation 159 ml/min; Estimated Glomerular Filt Rate > 60; Glucose 110 mg/dL (65-105); Potassium 4.1 mmol/L (3.4-5.0); Sodium 136 mmol/L (137-145)
[2020-10-19 00:58] LABS: Uric Acid 5.9 mg/dL (2.5-7.5)
[2020-10-19] MEDS: fentaNYL CITRATE INJ (*CRX) 100 MCG/2 ML VIAL 50 MCG IV PUSH ×2 (03:35→05:13)
--- NOTE | 2020-10-19 07:17 | WPDOBADMIT ---
Obstetrics - Admit Note Admission Note: record reviewed. No pertinent additions to the history and/or any subsequent changes in the physical findings that are not consistent with the expected course of the were found. KELLEN NORMANE, 6 cm anticipate vaginal delivery Additions to the history and/or subsequent changes in the physical findings follow. None.
--- NOTE | 2020-10-19 07:37 | WPDANESEPP ---
Anes - Eval Pre Procedure Procedure: labor epidural Date/Time: 10/19/20 07:37 Pre Op Diagnosis: Induction of Labor Patient Data Age: 25 Gender: F Height: 1.6 m Weight: 131.2 kg Last Vital Signs Temp 36.9 C 10/19/20 00:29 Pulse 79 10/19/20 07:35 BP 96/43 L 10/19/20 07:35 Pulse Ox 100 10/19/20 07:34 Allergies Allergy/AdvReac Type Severity Reaction Status Date / Time No Known Allergies Allergy Verified 07/29/19 13:56 Home Medications Medication Instructions Recorded Confirmed Type PNV cmb#95-ferrous fumarate-FA 1 tablet PO DAILY 10/04/20 10/04/20 History [] aspirin 81 mg PO DAILY 10/04/20 10/04/20 History Laboratory Tests 10/19/20 10/19/20 10/19/20 00:27 00:27 00:27 WBC 14.4 K/mm3 H K/mm3 (4.5-10.0) RBC 3.76 M/mm3 L M/mm3 (4.2-5.4) Hgb 11.2 g/dL L g/dL (12.0-15.0) Hct 33.3 % L % (37.0-47.0) MCV 88.6 fl fl (80-100) MCH 29.8 pg pg (26-34) MCHC 33.6 g/dl g/dl (32-36) RDW 13.4 % % (11.5-14.5) Plt Count 170 k/mm3 k/mm3 (150-375) MPV 12.0 fl H fl (7.4-10.4) Immature Gran % (Auto) 0.5 % % (0-0.5) Neut % (Auto) 83.2 % H % (45.5-73.1) Lymph % (Auto) 9.4 % L % (18.3-44.2) [place] % (Auto) 5.9 % % (2.6-8.5) Eos % (Auto) 0.7 % % (0-4.4) Baso % (Auto) 0.3 % % (0.2-1.2) Lymph # (Auto) 1.35 K/mm3 K/mm3 (0.9-3.2) [place] # (Auto) 0.8 K/mm3 H K/mm3 (0.1-0.6) Eos # (Auto) 0.1 K/mm3 K/mm3 (0-0.3) Baso # (Auto) 0.0 K/mm3 K/mm3 (0.0-0.1) Abs Immat Gran (auto) 0.07 K/mm3 H K/mm3 (0.00-0.031) Absolute Neuts (auto) 12.0 K/mm3 H K/mm3 (1.3-6.7) Absolute Nucleated RBC 0.0 K/mm3 K/mm3 (0.0-0.012) Nucleated RBC % 0.0 % % (0.0-0.2) Sodium Potassium Chloride Carbon Dioxide Anion Gap BUN Creatinine Estim Creat Clear Calc Estimated GFR Glucose Uric Acid 5.9 mg/dL mg/dL (2.5-7.5) Calcium Total Bilirubin AST ALT Alkaline Phosphatase Total Protein Albumin RPR Pending Blood Type Antibody Screen 10/19/20 10/19/20 00:27 01:21 WBC RBC Hgb Hct MCV MCH MCHC RDW Plt Count MPV Immature Gran % (Auto) Neut % (Auto) Lymph % (Auto) [place] % (Auto) Eos % (Auto) Baso % (Auto) Lymph # (Auto) [place] # (Auto) Eos # (Auto) Baso # (Auto) Abs Immat Gran (auto) Absolute Neuts (auto) Absolute Nucleated RBC Nucleated RBC % Sodium 136 mmol/L L mmol/L (137-145) Potassium 4.1 mmol/L mmol/L (3.4-5.0) Chloride 106 mmol/L mmol/L (98-107) Carbon Dioxide 20 mmol/L L mmol/L (22-30) Anion Gap 10 mmol/L mmol/L (8-16) BUN 7 mg/dL mg/dL (7-17) Creatinine 0.60 mg/dL L mg/dL (0.7-1.0) Estim Creat Clear Calc 159 ml/min ml/min Estimated GFR > 60 (59 - ) Glucose 110 mg/dL H mg/dL (65-105) Uric Acid Calcium 10.0 mg/dL mg/dL (8.4-10.2) Total Bilirubin 0.4 mg/dL mg/dL (0.2-1.3) AST 33 U/L U/L (14-36) ALT 18 U/L U/L (4-35) Alkaline Phosphatase 143 U/L H U/L (38-126) Total Protein 7.0 g/dL g/dL (6.3-8.2) Albumin 3.7 g/dL g/dL (3.5-5.1) RPR Blood Type O Positive Antibody Screen Negative Patient hx anesthesia problems: none Family hx anesthesia problems: none PMFSH Past Medical History Medical History (Revi
--- NOTE | 2020-10-19 07:51 | PM.OBPNLAB ---
Pain Control Date/time seen: 10/19/20 07:51 SVE 6-7/90/-2 AROM small amount of clear odorless fluid
[2020-10-19 08:10] LABS: Amphetamine Screen Urine Negative (Negative); Barbiturate Screen Urine Negative (Negative); Benzodiazepines Screen Urine Negative (Negative); Cannabinoid Screen Urine Negative (Negative); Cocaine Screen Urine Negative (Negative); Methadone Screen Urine Negative (Negative); Opiate Screen Urine Negative (Negative); Phencyclidine Screen Urine Negative (Negative)
--- NOTE | 2020-10-19 10:05 | P.PCNOB_ITS ---
OB - Delivery Note Procedure Delivery date: 10/19/20 Procedure: vaginal delivery events: Induced HTN Intrapartal events: None Induction method: AROM and per pitocin protocol Delivery monitor: external FHT, external uterine and internal uterine Route of delivery: Episiotomy description: None Laceration Description: Perineal - 2nd Degree and Labial (left) Delivery repair: vicryl Specimen: Yes Quantitative Blood Loss (ml): 135 Anesthesia type: Epidural Disposition: floor [place] Baby Date of : 10/19/20 Time of : 09:51 Weeks of gestation at delivery: 38 Infant gender: Male Weight (pounds): 6 Weight (ounces): 11 presentation: vertex position: Right Occiput Anterior Placenta delivery description: Spontaneous (accessory attached to membranes) cord vessel description: 3 Vessels, Nuchal Cord, Loose, Reduced, Clamped/Cut, Around Body x1 and Delayed Cord Clamping score one minute: 8 score five minutes: 9 Narrative: mother and baby skin to skin in stable condition
[2020-10-19] MEDS: OXYTOCIN 30 UNITS/NS 500 ML 30 UNITS/500 ML BAG 125 UNITS IV CONT (10:26)
[2020-10-19] MEDS: WITCH HAZEL 40 PADS 1 PAD TOPICAL (10:26)
[2020-10-19] MEDS: BENZOCAINE 20% AER SPR (*SP) 56 GM CAN 1 SPRAY TOPICAL (10:27)
[2020-10-19 11:07] LABS: Rapid Plasma Reagin Non-Reactive (NonReactive)
--- NOTE | 2020-10-19 13:40 | PC.NURSE ---
Patient transferred to post room #280 per wheelchair from labor and delivery. Support person present. Oriented to unit, room, information board, rooming in, admission packet and security measures. Patient verbalizes understanding.
[2020-10-19] MEDS: ACETAMINOPHEN 325 MG TABLET 650 MG PO (14:04)
[2020-10-20 00:05] VITALS: BP 126/54; PULSE 79; RESP 16; TEMP 36.5; O2SAT 98
[2020-10-20] MEDS: IBUPROFEN 600 MG TABLET PO ×2 (00:09→13:26)
[2020-10-20 05:05] VITALS: BP 110/63; PULSE 67; RESP 16; TEMP 36.3; O2SAT 99
[2020-10-20] MEDS: ACETAMINOPHEN 325 MG TABLET 650 MG PO ×2 (05:05→17:55)
[2020-10-20 05:32] LABS: Hematocrit 28.6 % (37.0-47.0); Hemoglobin 9.3 g/dL (12.0-15.0)
[2020-10-20 09:00] VITALS: BP 128/72; PULSE 67; PULSE 74; RESP 16; RESP 20; TEMP 36.6; O2SAT 100; O2SAT 99
--- NOTE | 2020-10-20 09:12 | WPDANLDPN2 ---
Anes-Prog Note L&D Date/Time: 10/20/20 09:12 Comfortable throughout: labor and delivery Neuraxial method: epidural Epidural/Spinal procedure site: clean & non-tender Neuro status: Neuro function grossly intact. Cardiovascular status: normal Respiratory status: normal Airway patency: baseline Mental status: baseline Post-Op hydration status: normal Vital Signs: Last Vital Signs Temp 36.3 C L 10/20/20 05:05 Pulse 67 10/20/20 05:05 Resp 16 10/20/20 05:05 BP 110/63 10/20/20 05:05 Pulse Ox 99 10/20/20 05:05 Pain score (VAS): 0 Post-procedural complaints: none Patient feedback: Patient satisfied with anesthetic care.
--- NOTE | 2020-10-20 09:31 | P.PNOB_ITS ---
OB - PN: Subj Subjective Date/time seen: 10/20/20 09:31 Patient comments: no complaints baby status: doing well OB - PN: Obj Data Labs CBC & Chem 7: 10/20/20 05:09 10/19/20 00:27 Labs: Laboratory Results - last 24 hr 10/19/20 10/20/20 00:27 05:09 Hgb 9.3 L Hct 28.6 L RPR Non-reactive OB - PN A/P Plan day: 1 Plan: routine care and discharge home Time Spent With Patient Time: Total time spent is greater than 50% in coordination of care (as d ocumented) at patient's floor/unit and/or counseling patient: Review of Systems Review of Systems: All systems reviewed & are unremarkable except as noted in HPI and below Exam 2 Const: General: cooperative, healthy appearing and comfortable Psych: Affect: normal affect Thought process: Normal thought process present Thought content: Yes Normal thought content present Judgement: Good judgement present (Psych)
--- NOTE | 2020-10-20 09:33 | P.DS_ITS ---
DS: Admitting Diagnosis Admitting Diagnosis Admitting Diagnosis: GHTN OB - DS: Summary OB Procedures : None OB Procedures Intrapartum: Spontaneous Vag Delivery OB Procedures: : None Time Spent with Patient Time attestation: Total time spent providing and/or coordinating discharge services: DS: Data Data Completed and Pending Pending studies at discharge: Pending at discharge 10/19/20 09:55 Surgical [PTH] Routine Labs on day of discharge: Labs from last 24 hours 10/20/20 10/19/20 05:09 00:27 Hgb 9.3 L Hct 28.6 L RPR Non-reactive Discharge Plan Discharge Attending physician on discharge: Michelle Alicia Discharging Clinician: Caroline Phan Patient Disposition: Home, Self-Care Activity: pelvic rest Diet: regular Patient Instructions: Antibiotic Form Stand Alone Forms: General Discharge Information Follow-up/Referrals: Caroline Phan, CNM [Certified Nurse Senior Android Developer] - 4 Weeks Discharge Medications: Continued PNV cmb#95-ferrous fumarate-FA [] 28 mg iron- 800 mcg Tablet 1 tablet PO DAILY RF: 0 Discontinued aspirin 81 mg Tablet 81 mg PO DAILY RF: 0 Date of admission: 10/19/20 00:04 Primary Care Provider: PHYSICIAN,SHOE STICKS REPAIRER Admitting Provider: Michelle Alicia Attending physician on admission: Michelle Alicia Condition: Stable
[2020-10-20] MEDS: POLYSACCHARIDE IRON COMPLEX 150 MG CAPSULE PO (13:25)
[2020-10-20] MEDS: MULTIVIT/MIN/PREN/FOL AC/IRON TABLET 1 TAB PO (13:26)
[2020-10-20] MEDS: DOCUSATE SODIUM 100 MG CAPSULE PO (13:26)
[2020-10-20 17:24] VITALS: BP 116/59; PULSE 72; PULSE 74; RESP 20; TEMP 37.1; O2SAT 100
[2020-10-20] MEDS: MEASLES,MUMPS,RUBELLA VACCINE 0.5 ML VIAL SUB-Q (17:56)
[2020-10-20] MEDS: TETANUS,DIPHTHERIA,AC PERTUSSIS ADULT (0.5 ML) BOOSTRIX IM (17:57)
--- NOTE | 2020-10-20 18:49 | PC.NURSE ---
Consulted with patient, reviewed feeding cues, frequencies, duration of feedings, feeding elimination flow sheet, and signs of adequate intake. Demonstrated stimulation techniques to wake for feeding. Assisted with to breast. Reviewed positioning/alignment, holding breast and asymmetrical latch on. was [able] to latch correctly. nursed eagerly, with steady draws and [frequent swallowing noted. Reviewed signs of a correct latch, effective nursing and suck swallow ratio. Infant was[able/unable] to maintain latch without discomfort to mother. Nipple care reviewed. Instructed mother to call out for RN assistance if she is unable to latch infant for feeding or she has discomfort with nursing. Instructed feeding should be initiated three hours from start of last feeding or if feeding cues are noted before. Mother voiced understanding of information shared.
--- NOTE | 2020-10-20 18:50 | PC.NURSE ---
Patient viewed the discharge video Mother & Baby Care, The First Two Weeks . Patient was given the opportunity and encouraged to ask questions. Patient verbalized understanding of information shared and has been given the mother/baby guide for home reference.
--- NOTE | 2020-10-20 18:50 | PC.NURSE ---
Mother given a breast pump kit and explained use of hand pump to mother. She states that she was going to buy a pump, however she has recently signed up for [facility] and will be provided a pump. Since she is going home with a feeding plan for ineffective feeding it was felt that a hand pump would give her the ability to pump until a mechanical pump can be obtained.
[2020-10-22 09:30] VITALS: BP 125/71; PULSE 68; RESP 20; TEMP 37; O2SAT 100
== END 2020-10-20 19:35 | disposition home or self-care (01) | DRG 560 ==
LOC: ANHLDR 00:10 → ANHOB2 13:41
PROVIDERS: Advanced Practice Midwife; Admitting Provider Obstetrics & Gynecology; Visit Provider Obstetrics & Gynecology
DX: O13.4 Gestational [pregnancy-induced] hypertension without significant proteinuria, complicating childbirth (principal); Z37.0 Single live birth; Z3A.38 38 weeks gestation of pregnancy; O43.193 Other malformation of placenta, third trimester; O70.1 Second degree perineal laceration during delivery; O69.2XX0 Labor and delivery complicated by other cord entanglement, with compression, not applicable or unspecified; O99.214 Obesity complicating childbirth; E66.01 Morbid (severe) obesity due to excess calories; O99.02 Anemia complicating childbirth; D64.9 Anemia, unspecified
CPT/HCPCS: 36415; 80053; 80307; 84550; 85014; 85018; 85025; 86592; 86850; 86900; 86901; 88307; 90710; 90715; A9270; J2590; J2795; J3010; J7120